=== PATIENT | male | born 1965 | race African-American/Black ===

== ENCOUNTER 2018-03-12 14:22 | Inpatient (IN) | payer MEDICAID, OTHER ==
[~2018-03-12] VITALS: Ht 188 cm; Wt 87.5 kg
[2018-03-12] MEDS ORDERED: [UNRECOGNIZED DRUG - REMARK] (14:42)
[2018-03-12] MEDS ORDERED: [UNRECOGNIZED DRUG - REMARK] (14:42)
[2018-03-12] MEDS ORDERED: [UNRECOGNIZED DRUG - REMARK] (14:42)
[2018-03-12 15:45] LABS: BASOPHILS % (AUTO) 0.3 % (0.0-2.0); EOSINOPHILS % (AUTO) 0.4 % (0.0-7.0); HEMATOCRIT 35.9 % (36.7-47.1); HEMOGLOBIN 12.1 g/dL (12.5-16.3); LYMPHOCYTES % (AUTO) 8.8 % (20.5-51.5); MEAN CORPUSCULAR HEMOGLOBIN 31.4 uug (23.8-33.4); MEAN CORPUSCULAR HGB CONC 34 g/dL (32.5-36.3); MONOCYTES # (AUTO) 1.5 K/uL (2.0-10.0); MONOCYTES % (AUTO) 13.6 % (0.0-11.0); NEUTROPHILS # (AUTO) 8.7 K/uL (1.8-8.9); NEUTROPHILS % (AUTO) 76.9 % (38.5-71.5); PLATELET COUNT (AUTO) 270 K/uL (152-348); RED BLOOD CELL COUNT(AUTO) 3.86 MIL/uL (4.06-5.63); WHITE BLOOD COUNT (AUTO) 11.3 K/uL (3.6-10.2)
[2018-03-12 16:07] LABS: BILIRUBIN,DIRECT 0.3 mg/dL (0.0-0.2); BILIRUBIN,TOTAL 0.6 mg/dL (0.2-1.0); CREATININE 1.9 mg/dL (0.6-1.3); POTASSIUM 3.7 mmol/L (3.5-5.1); TOTAL PROTEIN, SERUM 7.7 g/dL (6.4-8.2)
[2018-03-12] MEDS ORDERED: IV NORMAL SALINE 1000 ML BAG IV ONE (16:30)
--- NOTE | 2018-03-12 16:53 | NUR ---
PT JUST COMPLAINED THAT PT FELL DOWN ON TAILBONE A FEW DAYS AGO AND NOW HIS TAIL BONE AREA AND LEFT HIP MD HAY NOTIFIED
[2018-03-12] MEDS ORDERED: MORPHINE SULFATE 4 MG/1 ML DISP.SYRIN IV ONE (17:45)
[2018-03-12] MEDS ORDERED: ONDANSETRON 4 MG/2 ML VIAL IV ONE (17:45)
[2018-03-12] MEDS ORDERED: ONDANSETRON 4 MG/2 ML VIAL ONE (17:58)
[2018-03-12] MEDS ORDERED: MORPHINE SULFATE 4 MG/1 ML DISP.SYRIN ONE (17:58)
[2018-03-12 18:12] LABS: *BILIRUBIN,URIN NEGATIVE (NEGATIVE); *BLOOD, URINE NEGATIVE (NEGATIVE); *CLARITY,URINE CLEAR (CLEAR); *COLOR,URINE YELLOW (YELLOW); *KETONES,URINE TRACE (NEGATIVE); *PROTEIN,URINE NEGATIVE (NEGATIVE); *UROBILINOGEN,URINE 0.2 E.U./dl (NORMAL); LEUKOCYTE ESTERASE ,URINE NEGATIVE (NEGATIVE); NITRITE, URINE NEGATIVE (NEGATIVE); PH,URINE 6.5 (5.0-8.0)
[2018-03-12 18:17] LABS: UGLUCOSE 2+ (NEGATIVE)
[2018-03-12 18:19] LABS: BACTERIA,URINE NONE SEEN /HPF (NONE SEEN); RBC,URINE 0-3 /HPF (0-3); SQUAMOUS EPITHELIAL CELL,UR NONE SEEN /HPF (NONE SEEN); WBC,URINE 0-3 /HPF (0-3)
--- NOTE | 2018-03-12 19:22 | NUR ---
HANDS OFF REPORT GIVEN TO JANELL GILBERT. [facility] PROVIDED FOR PT.
[2018-03-12] MEDS ORDERED: DEXTROSE 50% 50 ML DISP.SYRIN IV PRN (19:45)
[2018-03-12] MEDS ORDERED: ONDANSETRON 4 MG/2 ML VIAL IV PRN (19:45)
[2018-03-12] MEDS ORDERED: ACETAMINOPHEN 325 MG TABLET PO PRN (19:45)
[2018-03-12] MEDS ORDERED: MAGNESIUM HYDROXIDE 30 ML LIQUID UDC PO PRN (19:45)
--- NOTE | 2018-03-12 19:45 | NUR ---
DR ROSAS AT BEDSIDE SEEN PATIENT IN ROOM 05A. PATIENT NOT IN ANY DISTRESS. IV FLUIDS INFUSING NO REACTIONS NOTED.
[2018-03-12 20:08] LABS: CREATININE 1.6 mg/dL (0.6-1.3); POTASSIUM 3.1 mmol/L (3.5-5.1)
--- NOTE | 2018-03-12 20:45 | NUR ---
Pt. admitted to TELE , under care of Dr. ROSAS Belongs List completed
[2018-03-12 21:00] VITALS: BP 163/82
[2018-03-12] MEDS: HYDROCODONE/APAP 5-325MG TABLET PO PRN (21:45)
[2018-03-12] MEDS: IV NS 1000 ML 1,000 ML IV PRN (21:45)
[2018-03-12] MEDS ORDERED: LISI-603 PO (22:02)
[2018-03-12] MEDS ORDERED: ARIP20TA4 PO (22:02)
[2018-03-12] MEDS ORDERED: ATOR20TA PO (22:02)
[2018-03-12] MEDS ORDERED: ZOLP12.52 PO (22:02)
[2018-03-12] MEDS ORDERED: AMIT100T2 PO (22:02)
[2018-03-12] MEDS ORDERED: INSU100V7 SQ (22:02)
[2018-03-12] MEDS ORDERED: ALBU18HF2 INH (22:02)
--- NOTE | 2018-03-12 22:30 | NUR ---
Received from ER Dx Toe fracture with uncontrolled DM. Awake alert & oriented no SOB denies chest pain, c/o perianal discomfort. Placed on Telemetry- NSR on the monitor. Initial assessment done, multiple scab/open wound on bilateral lower extremities & toes noted. Patient has rash on groin, scrotum & penis. See pictures in chart. Vital signs WNL. Patient eating candies, noted 2 packs of candies at bedside. Instructed patient to stop eating candies for now for his blood sugar re-check but patient refused. Patient stated he eats candies if he is depressed. IVF NS started as ordered. Wound treatment initiated, cleansed with NS, then Hydrogel applied & covered w/ Mepilex. Wound consult was ordered. [place] 1 tab po given for pain. Called Dr. Garcia to reconcile home meds. Will continue to monitor.
[2018-03-13] VITALS: BP 144/74
[2018-03-13] MEDS: BLOOD SUGAR DIAGNOSTIC 1 EACH STRIP VI SCH ×5 (01:23→20:48)
[2018-03-13] MEDS: INSULIN REGULAR, HUMAN 300 UNITS/3 ML VIAL SQ PRN ×2 (01:29→20:49)
--- NOTE | 2018-03-13 02:00 | NUR ---
Patient still awake & anxious, still eating his gummy bear candies. requesting his. Albuterol puff. Called [employer] MD automotive sales professional for orders. Orders received. Tele sinus rhythm.
[2018-03-13 04:00] VITALS: BP 117/65
[2018-03-13] MEDS: IV NS 1000 ML 1,000 ML IV PRN ×2 (06:23→22:27)
[2018-03-13] MEDS: HYDROCODONE/APAP 5-325MG TABLET PO PRN ×3 (06:32→20:31)
[2018-03-13 06:37] LABS: BASOPHILS % (AUTO) 0.2 % (0.0-2.0); EOSINOPHILS # (AUTO) 0.1 K/uL (0.0-0.7); EOSINOPHILS % (AUTO) 0.7 % (0.0-7.0); HEMATOCRIT 29.9 % (36.7-47.1); HEMOGLOBIN 10.5 g/dL (12.5-16.3); LYMPHOCYTES # (AUTO) 1.4 K/uL (20.0-40.0); LYMPHOCYTES % (AUTO) 16.4 % (20.5-51.5); MEAN CORPUSCULAR HEMOGLOBIN 32.2 uug (23.8-33.4); MEAN CORPUSCULAR HGB CONC 35 g/dL (32.5-36.3); MEAN CORPUSCULAR VOLUME 91.9 fL (73.0-96.2); MONOCYTES # (AUTO) 0.9 K/uL (2.0-10.0); MONOCYTES % (AUTO) 10.8 % (0.0-11.0); NEUTROPHILS # (AUTO) 6.2 K/uL (1.8-8.9); NEUTROPHILS % (AUTO) 71.9 % (38.5-71.5); PLATELET COUNT (AUTO) 269 K/uL (152-348); RED BLOOD CELL COUNT(AUTO) 3.25 MIL/uL (4.06-5.63); WHITE BLOOD COUNT (AUTO) 8.6 K/uL (3.6-10.2)
[2018-03-13 07:14] LABS: BILIRUBIN,TOTAL 0.4 mg/dL (0.2-1.0); CREATININE 1.4 mg/dL (0.6-1.3); MAGNESIUM 2.1 mg/dL (1.8-2.4); TOTAL PROTEIN, SERUM 6.3 g/dL (6.4-8.2)
--- NOTE | 2018-03-13 07:15 | NUR ---
No significant change, vital signs stable. Medicated for pain PRN. Tele sinus rhythm.
[2018-03-13] MEDS: INSULIN REGULAR, HUMAN 300 UNIT/3 ML VIAL SQ PRN ×2 (08:01→16:29)
[2018-03-13] MEDS ORDERED: Medication Not On Formulary EA (Zolpidem Tartrate (Ambien Cr) 12.5 MG) PO SCH (10:00)
[2018-03-13] MEDS ORDERED: Medication Not On Formulary EA (Aripiprazole (Abilify) 20 MG) PO SCH (10:00)
[2018-03-13] MEDS ORDERED: Medication Not On Formulary EA (Amitriptyline Hcl 100 MG) PO SCH (10:00)
[2018-03-13] MEDS ORDERED: ALBUTEROL SULFATE 8 GM HFA.AER.AD INH SCH (10:00)
[2018-03-13] MEDS ORDERED: INSU100C SQ (10:04)
[2018-03-13] MEDS: ATORVASTATIN 20 MG TABLET PO SCH ×2 (10:33→20:32)
[2018-03-13] MEDS: ARIPIPRAZOLE 10 MG TABLET PO SCH (10:33)
[2018-03-13] MEDS: LISINOPRIL 20 MG TABLET PO SCH (10:35)
[2018-03-13] MEDS ORDERED: POTASSIUM CHLORIDE 20 MEQ TAB.PRT.SR PO ONE ×2 (10:45→14:00)
[2018-03-13] MEDS: ALBUTEROL SULFATE 2.5 MG/3 ML NEBU NEB SCH ×4 (11:32→23:26)
[2018-03-13 11:40] VITALS: BP 113/64
[2018-03-13 15:47] VITALS: BP 118/58
--- NOTE | 2018-03-13 18:20 | NUR ---
PT IN BED WITH NO SIGNS OF DISTRESS, CALM, COOPERATIVE, AOX4, AMBULATORY, IV PATENT AND INTACT. CONTINUE TO MONITOR.
[2018-03-13 19:00] VITALS: BP 103/57
[2018-03-13] MEDS: IPRATROPIUM BROMIDE 0.5 MG/2.5 ML NEBU NEB PRN ×2 (19:43→23:26)
[2018-03-13] MEDS: ZOLPIDEM 5 MG TABLET PO SCH (20:31)
[2018-03-13] MEDS: AMITRIPTYLINE HCL 50 MG TABLET PO SCH (20:32)
[2018-03-13] MEDS: INSULIN GLARGINE,HUM 300 UNITS/3 ML CARTRIDGE SQ SCH (20:47)
[2018-03-13] MEDS: Z GUARD REMEDY PASTE 57 GM TUBE TOP PRN (20:50)
--- NOTE | 2018-03-13 23:00 | NUR ---
Patient c/o sacrum & buttocks wound discomfort. Applied hydrogel & covered w/ Mepilex. [place] 1 tab po given.
[2018-03-14] MEDS: ALBUTEROL SULFATE 2.5 MG/3 ML NEBU NEB SCH ×6 (03:30→22:46)
[2018-03-14] MEDS: IV NS 1000 ML 1,000 ML IV PRN ×3 (03:48→14:52)
[2018-03-14 04:00] VITALS: BP 115/65
--- NOTE | 2018-03-14 05:00 | NUR ---
Patient slept well. No further change noted. Kept comfortable.
--- NOTE | 2018-03-14 05:42 | NUR ---
No significant change, patient non compliant with food. Accu check result elevated, multiple candies in room. No acute resp distress, assisted w/ all needs. Vital signs stable.
[2018-03-14 06:10] LABS: BASOPHILS % (AUTO) 0.3 % (0.0-2.0); EOSINOPHILS % (AUTO) 0.6 % (0.0-7.0); HEMATOCRIT 27.5 % (36.7-47.1); HEMOGLOBIN 9.5 g/dL (12.5-16.3); LYMPHOCYTES # (AUTO) 1.7 K/uL (20.0-40.0); LYMPHOCYTES % (AUTO) 22.1 % (20.5-51.5); MEAN CORPUSCULAR HEMOGLOBIN 31.7 uug (23.8-33.4); MEAN CORPUSCULAR HGB CONC 35 g/dL (32.5-36.3); MEAN CORPUSCULAR VOLUME 91.3 fL (73.0-96.2); MONOCYTES % (AUTO) 12.7 % (0.0-11.0); NEUTROPHILS # (AUTO) 4.9 K/uL (1.8-8.9); NEUTROPHILS % (AUTO) 64.3 % (38.5-71.5); PLATELET COUNT (AUTO) 254 K/uL (152-348); RED BLOOD CELL COUNT(AUTO) 3.01 MIL/uL (4.06-5.63); WHITE BLOOD COUNT (AUTO) 7.6 K/uL (3.6-10.2)
[2018-03-14 06:40] LABS: BILIRUBIN,TOTAL 0.3 mg/dL (0.2-1.0); CREATININE 1.1 mg/dL (0.6-1.3); PHOSPHOROUS 2.5 mg/dL (2.5-4.9); POTASSIUM 3.2 mmol/L (3.5-5.1); TOTAL PROTEIN, SERUM 5.6 g/dL (6.4-8.2)
[2018-03-14] MEDS: BLOOD SUGAR DIAGNOSTIC 1 EACH STRIP VI SCH ×4 (06:48→20:29)
--- NOTE | 2018-03-14 08:00 | NUR ---
AWAKE ALERT COOPERATE WELL NO SOB OR PAIN DSG AT PLACIDO LEG D/I RESTING WELL WITH CALL RASMUSSEN IN REACH AND BED ALARM ON CONTINUE IVF
[2018-03-14] MEDS: LISINOPRIL 20 MG TABLET PO SCH (08:30)
[2018-03-14] MEDS: ARIPIPRAZOLE 10 MG TABLET PO SCH (08:30)
[2018-03-14] MEDS: INSULIN REGULAR, HUMAN 300 UNIT/3 ML VIAL SQ PRN ×3 (08:32→17:08)
[2018-03-14] MEDS ORDERED: INSU100V SQ (11:15)
[2018-03-14] MEDS ORDERED: POTASSIUM CHLORIDE 20 MEQ TAB.PRT.SR PO ONE (11:30)
[2018-03-14] MEDS: HYDROCODONE/APAP 5-325MG TABLET PO PRN ×2 (11:47→18:51)
[2018-03-14 12:00] VITALS: BP 97/53
--- NOTE | 2018-03-14 13:47 | NUR ---
WOUND CARE CONSULT: PT PRESENTS WITH MULTIPLE WOUNDS INCLUDING LEFT LOWER LEG, BILATERAL KNEES, SACRAL STAGE 2 ULCER, CRUSTED AREAS TO INNER BUTTOCKS, DRY ESCHARS TO FEET, ALL PRESENT ON ADMISSION. PT ABLE TO ASSIST WITH TURNING AND REPOSITIONING AND ABLE TO STAND BUT VERY WEAK. RECOMMEND SURGICAL CONSULT FOR KNEE WOUNDS WITH NECROTIC TISSUE. 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 ALL WOUND CARE AND SKIN PROTECTION RECOMMENDATIONS DISCUSSED WITH NURSING STAFF. WILL SEE PRN. BLACK IN AGREEMENT WITH PLAN OF CARE. Addendum: 03/14/18 at 1350 by MAI SALAZAR RN Amended: Links added.
[2018-03-14] MEDS: BACITRACIN/POLYMYXIN B OINT 15 GM TUBE TOP SCH (14:52)
--- NOTE | 2018-03-14 16:00 | NUR ---
DR NG CAME AND SEEN THE FILM OF LEFT FOOT AND STATE NO FX , I DO NOT NEED TO DO ANYTHING , NO ORDER
[2018-03-14 16:08] VITALS: BP 91/60
[2018-03-14] MEDS: CLOTRIMAZOLE 1% CREAM 30 GM TUBE TOP SCH (17:06)
--- NOTE | 2018-03-14 17:15 | NUR ---
STABLE CONDITION ,PAIN UNDER CONTROL NO ACUTE DISTRESS CONTINUE IVF AND EAT WELL NO N/V PO FLD COLLEEN MOD AMT RESTING QUIET IN BED WITH CALL LIGHT IN REACH AND BED ALARM ON
[2018-03-14] MEDS: IPRATROPIUM BROMIDE 0.5 MG/2.5 ML NEBU NEB PRN (19:32)
[2018-03-14] MEDS: ATORVASTATIN 20 MG TABLET PO SCH (20:25)
[2018-03-14] MEDS: ZOLPIDEM 5 MG TABLET PO SCH (20:25)
[2018-03-14] MEDS: AMITRIPTYLINE HCL 50 MG TABLET PO SCH (20:25)
[2018-03-14 20:29] VITALS: BP 149/76
[2018-03-14] MEDS: INSULIN REGULAR, HUMAN 300 UNITS/3 ML VIAL SQ PRN (20:35)
[2018-03-14] MEDS: INSULIN GLARGINE,HUM 300 UNITS/3 ML CARTRIDGE SQ SCH (20:35)
[2018-03-15] MEDS: IV NS 1000 ML 1,000 ML IV PRN (01:01)
[2018-03-15] MEDS: ALBUTEROL SULFATE 2.5 MG/3 ML NEBU NEB SCH ×6 (02:38→22:37)
[2018-03-15] MEDS: HYDROCODONE/APAP 5-325MG TABLET PO PRN ×2 (04:07→09:11)
[2018-03-15] MEDS: ALBUTEROL SULFATE 2.5 MG/3 ML NEBU NEB PRN ×2 (04:40→08:32)
[2018-03-15 04:54] VITALS: BP 127/66
[2018-03-15] MEDS: BLOOD SUGAR DIAGNOSTIC 1 EACH STRIP VI SCH ×4 (06:40→21:04)
[2018-03-15 06:54] LABS: CREATININE 1.2 mg/dL (0.6-1.3); POTASSIUM 3.4 mmol/L (3.5-5.1)
--- NOTE | 2018-03-15 08:00 | NUR ---
awake alert cooperate well no acute distress no sob resting well with call light in reach
[2018-03-15] MEDS: LISINOPRIL 20 MG TABLET PO SCH (08:07)
[2018-03-15] MEDS: ARIPIPRAZOLE 10 MG TABLET PO SCH (08:07)
[2018-03-15] MEDS: BACITRACIN/POLYMYXIN B OINT 15 GM TUBE TOP SCH (08:08)
[2018-03-15] MEDS: Z GUARD REMEDY PASTE 57 GM TUBE TOP PRN (08:08)
[2018-03-15] MEDS: CLOTRIMAZOLE 1% CREAM 30 GM TUBE TOP SCH ×2 (08:09→17:08)
[2018-03-15] MEDS: INSULIN REGULAR, HUMAN 300 UNIT/3 ML VIAL SQ PRN ×3 (08:11→17:05)
[2018-03-15] MEDS: IPRATROPIUM BROMIDE 0.5 MG/2.5 ML NEBU NEB PRN (08:32)
[2018-03-15] MEDS ORDERED: IV NS 1000 ML 1,000 ML IV PRN (08:47)
--- NOTE | 2018-03-15 09:00 | NUR ---
VALORIE ALCAZAR SEEN LAB WORK AND ORDER TO DECREASE IVF TO 50ML./HR AND IV SITE CHANGE TO RAC
[2018-03-15 11:10] VITALS: BP 111/64
[2018-03-15] MEDS ORDERED: POTASSIUM CHLORIDE 20 MEQ TAB.PRT.SR PO ONE (14:00)
--- NOTE | 2018-03-15 14:30 | NUR ---
IV LEAKING , AND UNABLE TO RESTART A NEW ONE MID LINE WAS ORDER BY DR MEEKS AND MARY LEE SUP WAS INFORM TO CALL MIDLINE NURSE SPECIALIZES
[2018-03-15 15:56] VITALS: BP 119/62
--- NOTE | 2018-03-15 17:20 | NUR ---
STABLE HEMODYNAMIC STATUS NO ACUTE DISTRESS EAT DINNER WELL DSG CHANGE THIS AFTERNOON ORDER SAFETY MEASURE PROVIDED CALL LIGHT IN REACH
[2018-03-15] MEDS: MORPHINE SULFATE 2 MG/1 ML DISP.SYRIN IV PRN ×2 (18:59→23:38)
[2018-03-15 19:00] VITALS: BP 132/72
--- NOTE | 2018-03-15 20:00 | NUR ---
PATIENT IS AWAKE IN BED AAOX4, DENIES PAIN OR ANY DISTRESS ON ASSESSMENT. SAFETY MEASURES IN PLACE, CALL LIGHT LEFT WITHIN PATIENT'S REACH
[2018-03-15] MEDS: AMITRIPTYLINE HCL 50 MG TABLET PO SCH (21:05)
[2018-03-15] MEDS: ATORVASTATIN 20 MG TABLET PO SCH (21:05)
[2018-03-15] MEDS: ZOLPIDEM 5 MG TABLET PO SCH (21:05)
[2018-03-15] MEDS: INSULIN GLARGINE,HUM 300 UNITS/3 ML CARTRIDGE SQ SCH (21:07)
[2018-03-15] MEDS: INSULIN REGULAR, HUMAN 300 UNITS/3 ML VIAL SQ PRN (21:09)
[2018-03-16] MEDS: ALBUTEROL SULFATE 2.5 MG/3 ML NEBU NEB SCH ×3 (02:47→11:10)
[2018-03-16 04:00] VITALS: BP 139/76
[2018-03-16] MEDS: MORPHINE SULFATE 2 MG/1 ML DISP.SYRIN IV PRN ×2 (05:50→10:14)
[2018-03-16 06:15] LABS: BASOPHILS % (AUTO) 0.3 % (0.0-2.0); EOSINOPHILS # (AUTO) 0.1 K/uL (0.0-0.7); EOSINOPHILS % (AUTO) 1.1 % (0.0-7.0); HEMATOCRIT 28.2 % (36.7-47.1); HEMOGLOBIN 9.7 g/dL (12.5-16.3); LYMPHOCYTES # (AUTO) 1.5 K/uL (20.0-40.0); LYMPHOCYTES % (AUTO) 23.1 % (20.5-51.5); MEAN CORPUSCULAR HGB CONC 34 g/dL (32.5-36.3); MEAN CORPUSCULAR VOLUME 93.5 fL (73.0-96.2); MONOCYTES # (AUTO) 0.8 K/uL (2.0-10.0); MONOCYTES % (AUTO) 12.6 % (0.0-11.0); NEUTROPHILS # (AUTO) 4.1 K/uL (1.8-8.9); NEUTROPHILS % (AUTO) 62.9 % (38.5-71.5); PLATELET COUNT (AUTO) 289 K/uL (152-348); RED BLOOD CELL COUNT(AUTO) 3.02 MIL/uL (4.06-5.63); WHITE BLOOD COUNT (AUTO) 6.4 K/uL (3.6-10.2)
[2018-03-16 06:25] LABS: CREATININE 1.1 mg/dL (0.6-1.3); POTASSIUM 3.6 mmol/L (3.5-5.1)
--- NOTE | 2018-03-16 06:45 | NUR ---
PATIENT SLEPT WELL THROUGH THE SHIFT. SLEEPING PILL WITH GOOD EFFECT. PAIN MEDS GIVEN REQUESTED BY PATIENT. NO C/O PAIN OR ACUTE DISTRESS AT PRESENT. WOUND CARE DONE PER MD ORDERS. NO SIGNIFICANT CHANGES IN STATUS. ALL NEEDS MET
[2018-03-16] MEDS: BLOOD SUGAR DIAGNOSTIC 1 EACH STRIP VI SCH ×2 (06:59→11:59)
--- NOTE | 2018-03-16 07:00 | NUR ---
RECEIVED PATIENT ON BED ASLEEP. GALINDO SAUCEDA DISTRESS NOTED. MIDLINE INTACT AND PATENT RUNNING NS @ 50 CC/HR INFUSING WELL. WOUND DRESSINGS INTACT, PICTURES TAKEN PER CRITICAL POWER INSTALL TECHNICIAN. NO COMPLAINTS OF PAIN/DISCOMFORT AT THIS TIME. COMFORT MEASURES PROVIDED. CALL LIGHT WITHIN REACH. WILL COTNINUE TO MONITOR CLOSELY.
[2018-03-16] MEDS: INSULIN REGULAR, HUMAN 300 UNIT/3 ML VIAL SQ PRN ×2 (08:02→12:03)
[2018-03-16] MEDS: ARIPIPRAZOLE 10 MG TABLET PO SCH (08:04)
[2018-03-16] MEDS: LISINOPRIL 20 MG TABLET PO SCH (08:04)
[2018-03-16] MEDS: BACITRACIN/POLYMYXIN B OINT 15 GM TUBE TOP SCH (08:10)
[2018-03-16] MEDS: CLOTRIMAZOLE 1% CREAM 30 GM TUBE TOP SCH (08:13)
[2018-03-16 11:12] VITALS: BP 116/70
[2018-03-16 14:43] VITALS: BP 110/75
--- NOTE | 2018-03-16 14:59 | NUR ---
PATIENT DISCHARGED IN STABLE CONDITION. DISCHARGE PAPERS AND INSTRUCTIONS GIVEN AND EXPLAINED TO PATIENT, HE VERBALIZED UNDERSTANDING. PRESCRIPTIONS GIVEN TO PATIENT, HE REFUSED MEDICATION EDUCATION FROM PHARMACY. MIDLINE ON RIGHT UPPER ARM REMOVED, CATHETER INTACT, WELL TOLERATED. ID BAND REMOVED AND DISCARDED PROPERLY. WOUND DRESSINGS INTACT. PICTURES WERE TAKEN BEFORE AT 03/16/18 0300 AND PLACED IN CHART WHEN DRESSINGS WERE CHANGED. TOOK PATIENT DOWN TO LOBBY VIA WHEELCHAIR. PATIENT LEFT VIA TAXI W/ TAXI VOUCHER PROVIDED BY HOSPITAL.
== END 2018-03-16 14:45 | disposition home or self-care (01) | DRG 422 ==
LOC: ER 14:24 → TELE 20:45 → MED 03-13 10:30
PROVIDERS: ADMIT Internal Medicine; ATTEND Internal Medicine
DX: E87.1 Hypo-osmolality and hyponatremia (principal); E86.0 Dehydration; N17.0 Acute kidney failure with tubular necrosis; E11.00 Type 2 diabetes mellitus with hyperosmolarity without nonketotic hyperglycemic-hyperosmolar coma (NKHHC); E11.51 Type 2 diabetes mellitus with diabetic peripheral angiopathy without gangrene; I10 Essential (primary) hypertension; D63.8 Anemia in other chronic diseases classified elsewhere; S92.512A Displaced fracture of proximal phalanx of left lesser toe(s), initial encounter for closed fracture; F31.9 Bipolar disorder, unspecified; E86.1 Hypovolemia; R29.6 Repeated falls; E83.51 Hypocalcemia; E78.5 Hyperlipidemia, unspecified; E88.09 Other disorders of plasma-protein metabolism, not elsewhere classified; E87.6 Hypokalemia; K21.9 Gastro-esophageal reflux disease without esophagitis; Z89.421 Acquired absence of other right toe(s); X58.XXXA Exposure to other specified factors, initial encounter; Y93.9 Activity, unspecified; Y92.89 Other specified places as the place of occurrence of the external cause; S81.002A Unspecified open wound, left knee, initial encounter; S81.001A Unspecified open wound, right knee, initial encounter; Z79.4 Long term (current) use of insulin; Z79.899 Other long term (current) drug therapy; Z85.51 Personal history of malignant neoplasm of bladder; Z79.84 Long term (current) use of oral hypoglycemic drugs
CPT/HCPCS: 36415; 70030-TC; 70450; 71045; 72110; 72125; 72192; 73551; 73630; 83605; 83735; 84100; 85025; 85730; 87040; 87070; 87077; 87086; 93005; 94640; 94664; A4663; C1751; J1815; J2270; J2405; J3590; J7030

== ENCOUNTER 2018-03-20 12:00 | Emergency (ER) | payer MEDICAID ==
[~2018-03-20] VITALS: Ht 188 cm; Wt 87.5 kg
[~2018-03-20 12:00] MED LIST: ALBU18HF2 INH; AMIT100T2 PO; ARIP20TA4 PO; ATOR20TA PO; INSU100V SQ; INSU100V7 SQ; LISI-603 PO; ZOLP12.52 PO; [UNRECOGNIZED DRUG - REMARK]
[2018-03-20 13:22] LABS: CREATININE 1.3 mg/dL (0.6-1.3); POTASSIUM 4.1 mmol/L (3.5-5.1)
[2018-03-20] MEDS ORDERED: IV NORMAL SALINE 1000 ML BAG IV ONE (13:45)
[2018-03-20] MEDS ORDERED: INSULIN REGULAR, HUMAN 1,000 UNITS/10 ML VIAL IV ONE (13:45)
[2018-03-20] MEDS ORDERED: LIDOCAINE/PRILOCAINE 5 GM CREAM.GM. ONE (14:01)
[2018-03-20] MEDS ORDERED: INSULIN REGULAR, HUMAN 300 UNIT/3 ML VIAL ONE (14:06)
--- NOTE | 2018-03-20 14:10 | NUR ---
Pt requested Emla cream be placed prior to saline lock attempt. Medication was removed from Pyxis but the ER physician was unable to order it in [facility].
--- NOTE | 2018-03-20 14:14 | NUR ---
Attempted to start saline lock x2 with no success. Pt refused any further attemptes, states "they usually have to put a midline on me ". notified, regular insulin 5units given SQ due to no IV access.
--- NOTE | 2018-03-20 14:54 | NUR ---
Patient discharged to home in stable conditon. Written and verbal after care instructions given. Patient verbalizes understanding of instructions. Stressed follow up with pmd or return to ER for worsening s/s.
== END 2018-03-20 14:57 | disposition home or self-care (01) ==
LOC: ER 12:03
DX: E11.65 Type 2 diabetes mellitus with hyperglycemia (principal); S80.911D Unspecified superficial injury of right knee, subsequent encounter; S80.912D Unspecified superficial injury of left knee, subsequent encounter; I10 Essential (primary) hypertension; E78.5 Hyperlipidemia, unspecified; Z79.4 Long term (current) use of insulin; X58.XXXD Exposure to other specified factors, subsequent encounter
CPT/HCPCS: 36415; A4663; J1815; J7030